=== PATIENT | female | born 1955 | race Caucasian/White ===

== ENCOUNTER 2017-02-07 17:21 | Emergency (ER) | payer OTHER ==
[2017-02-07 17:37] VITALS: BP 156/85
--- NOTE | 2017-02-07 17:37 | UC ---
Nausea/Vomiting/Diarrhea HPI - HPI Summary HPI Summary: 61 year old female presents with right lower back pain. - History of Current Complaint Chief Complaint: UCGI Stated Complaint: BACK PAIN, AND VOMITING Time Seen by Provider: 02/07/17 17:37 Hx Obtained From: Patient Onset/Duration: Sudden Onset Severity Initially: Moderate Severity Currently: Moderate Pain Scale Used: 0-10 Numeric - 7 Character: Sharp - Allergies/Home Medications Allergies/Adverse Reactions: Allergies Allergy/AdvReac Type Severity Reaction Status Date / Time Penicillins [PCN] Allergy Rash Verified 02/07/17 17:37 Home Medications: Home Medications Alendronate TAB (NF) [Fosamax TAB (NF)] 10 mg PO 02/07/17 [History] Metoprolol Tartrate TAB* [Lopressor TAB*] 25 mg PO DAILY 02/07/17 [History Confirmed 02/07/17] Naproxen Sodium [Naproxen Sodium 220 mg] 220 mg PO 02/07/17 [History] PMH/Surg Hx/FS Hx/Imm Hx Previously Healthy: Yes Review of Systems Constitutional: Negative Skin: Negative Eyes: Negative ENT: Negative Respiratory: Negative Cardiovascular: Negative Gastrointestinal: Abdominal Pain, Vomiting Genitourinary: Negative Motor: Negative Neurovascular: Negative Musculoskeletal: Myalgia, Other: - right lower back pain Neurological: Negative Psychological: Negative All Other Systems Reviewed And Are Negative: Yes Physical Exam Triage Information Reviewed: Yes Vital Signs Reviewed: Yes Eye Exam: Normal ENT Exam: Normal Dental Exam: Normal Neck exam: Normal Neck: Positive: 1 Respiratory Exam: Normal Cardiovascular Exam: Normal Abdominal Exam: Normal Musculoskeletal: Positive: Other: - right lower back pain Neurological Exam: Normal Psychological Exam: Normal Skin Exam: Normal Naus/Vom/Diarrhea Course/Dx - Differential Dx/Diagnosis Provider Diagnoses: right lower pain/spasm Condition At Discharge: Stable Discharge - Discharge Plan Condition: Stable Disposition: HOME Prescriptions: Meloxicam [Mobic] 7.5 mg PO BID #30 tab Methocarbamol TAB* [Robaxin 500 MG TAB*] 500 mg PO TID PRN #30 tab PRN Reason: Spasms - Back Patient Education Materials: Acute Low Back Pain (ED) Referrals: No Primary Care Phys,NOPCP [Primary Care Provider] -
== END 2017-02-07 18:16 | disposition home or self-care (01) ==
LOC: UCEAST 17:21
DX: M54.5 Low back pain (principal); M62.830 Muscle spasm of back
CPT/HCPCS: 87502; 99202; G0463